=== PATIENT | male | born 1985 | race Caucasian/White ===

== ENCOUNTER 2024-04-09 13:03 | Emergency (ER) | payer MEDICAID ==
[~2024-04-09] VITALS: Ht 162.6 cm; Wt 50.0 kg
[2024-04-09 13:27] VITALS: O2SAT 96
[2024-04-09 13:34] VITALS: BP 113/60; PULSE 95; RESP 18; TEMP 36.83628; O2SAT 96
[2024-04-09 17:22] LABS: BASOPHILS % 0.5 % (0.0-2.0); EOSINOPHILS % 1.4 % (0.0-5.0); HEMATOCRIT. 38.1 % (42.0-52.0); HEMOGLOBIN. 13.1 g/dL (14.0-18.0); LYMPHOCYTES % 14.8 % (20.0-50.0); MEAN CORPUSCULAR HEMOGLOBIN 30.5 pg (28.0-32.0); MEAN CORPUSCULAR HGB CONC 34.5 g/dL (31.0-37.0); MEAN CORPUSCULAR VOLUME 88.6 fL (80.0-94.0); MEAN PLATELET VOLUME 7.5 fl (7.4-10.4); MONOCYTES % 8.4 % (2.0-8.0); NEUTROPHILS % 74.9 % (40.0-76.0); PLATELET 211 x1000/uL (130-400); RED CELL DISTRIBUTION WIDTH 13.5 % (11.6-14.6); WHITE BLOOD COUNT 8.2 x1000/uL (4.5-11.0)
[2024-04-09 17:30] LABS: CHLORIDE 103 mEq/L (98-107); POTASSIUM 4.1 mEq/L (3.5-5.1); SODIUM 136 mEq/L (136-145)
[2024-04-09 17:31] LABS: CARBON DIOXIDE 28 mEq/L (21-32)
[2024-04-09 17:32] LABS: CALCIUM 9.8 mg/dL (8.7-10.4)
[2024-04-09 17:36] LABS: CREATININE 0.8 mg/dL (0.6-1.3); GLUCOSE 88 mg/dL (70-105); UREA NITROGEN BLOOD 10 mg/dL (9-23)
[2024-04-09] MEDS: PIPERACILLIN/TAZO 3.375G/50ML 50 ML IV ONE (19:31)
[2024-04-09] MEDS: VANCOMYCIN 1G PREMIX 200 ML IV ONE (19:51)
[2024-04-09] MEDS ORDERED: IOHEXOL-300 100 ML BOTTLE ONE (22:51)
== END 2024-04-09 22:08 | disposition left against medical advice (07) ==
LOC: ER 13:09 → EDBEDREQ 19:56 → ER 22:08
DX: L03.011 Cellulitis of right finger (principal)
CPT/HCPCS: 99285; 73201; 96365; 96367; 80048; 85025; 36415; 73140; Q9967; J2543; J3370